=== PATIENT | male | born 1940 | race Caucasian/White ===

== ENCOUNTER 2016-07-14 12:32 | Emergency (ER) | payer OTHER, MEDICARE ==
[~2016-07-14] VITALS: Ht 182.9 cm; Wt 100.0 kg
[2016-07-14 12:32] VITALS: RESP 26
[~2016-07-14 12:32] MED LIST changes: +INSULIN LISPRO 1 UNIT/0.01 ML (HUMALOG) DOSE SC ONE; +WATER (STERILE) FOR INJECTION 10 ML ONE; +ceFAZolin 1000 MG (ANCEF) VIAL ONE
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
[2016-07-14] MEDS ORDERED: fentaNYL 100 MCG/2 ML VIAL ONE ×2 (12:38→13:29)
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
--- NOTE | 2016-07-14 12:47 | NUR ---
DR LIRA HERE TO SEE IF PT NEEDS HIS HELP
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
--- NOTE | 2016-07-14 13:18 | NUR ---
AND SON IN TO SEE PT
[2016-07-14] MEDS ORDERED: ceFAZolin 1000 MG (ANCEF) VIAL ONE (13:20)
--- NOTE | 2016-07-14 13:20 | NUR ---
BRUISING NOTED TO RT WRIST, MADE DR AWARE. WRIST SPLINT APPLIED TO RT WRIST.
--- NOTE | 2016-07-14 13:20 | NUR ---
1ST LITER HAS INFUSED, BP 85/42 IN RT FOREARM. NEW LITER OF NS HUNG.
[2016-07-14] MEDS ORDERED: WATER (STERILE) FOR INJECTION 10 ML ONE (13:21)
--- NOTE | 2016-07-14 13:26 | NUR ---
BP CUFF MOVED TO RT UPPER ARM PER BP 97/56
[2016-07-14] MEDS ORDERED: ROCURONIUM 50 MG/5 ML (ZEMURON) VIAL IV ONE (13:27)
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
[2016-07-14 14:02] LABS: BASOPHILS % (AUTO) 1 % (0-2); EOSINOPHILS # (AUTO) 0.1 10^3uL; EOSINOPHILS % (AUTO) 2 % (0-4); LYMPHOCYTES # (AUTO) 2.4 X10^3; MEAN CORPUSCULAR HGB CONC 32.8 g/dL (31.0-37.0); MEAN PLATELET VOLUME 8.9 FL (6.0-9.5); MONOCYTES # (AUTO) 0.8 X10^3; MONOCYTES % (AUTO) 9 % (3-11); NEUTROPHILS # (AUTO) 5.4 X10^3; NEUTROPHILS % (AUTO) 61 % (51-67); PLATELET COUNT 274 10^3uL (150-450); WHITE BLOOD COUNT 8.91 10^3uL (4.0-11.0)
[2016-07-14 14:04] LABS: MEAN CORPUSCULAR VOLUME 104 FL (80-100)
[2016-07-14 14:06] LABS: BILIRUBIN,URINE Negative (Negative); CLARITY,URINE Cloudy; COLOR,URINE Yellow; GLUCOSE, URINE (UA) Negative (Negative); LEUKOCYTE ESTERASE ,URINE 1+ (Negative); PH,URINE 5.5 (5.0 - 8.0); UROBILINOGEN,URINE 0.2 mg/dL (0.2-1.0)
[2016-07-14 14:11] LABS: AMYLASE* 60 U/L (25-115); ANION GAP 20.4 MEQ/L (3-15); BUN/CREATININE RATIO 23 (10-20); CREATINE KINASE 161 U/L (55-170); LIPASE* 216 U/L (23-300)
[2016-07-14 14:36] LABS: URINE CENTRIFUGED VOLUME 12 mL
[2016-07-14 14:37] LABS: RBC,URINE 20-50 /HPF
[2016-07-14 14:45] VITALS: BP 101/61
== END 2016-07-14 13:35 | disposition short-term general hospital (02) ==
LOC: EDUNIT# 12:32 → ED 12:34
DX: S01.81XA Laceration without foreign body of other part of head, initial encounter (principal); S72.142A Displaced intertrochanteric fracture of left femur, initial encounter for closed fracture; S82.51XC Displaced fracture of medial malleolus of right tibia, initial encounter for open fracture type IIIA, IIIB, or IIIC; S50.11XA Contusion of right forearm, initial encounter; V54.5XXA Driver of pick-up truck or van injured in collision with heavy transport vehicle or bus in traffic accident, initial encounter; V57.5XXA Driver of pick-up truck or van injured in collision with fixed or stationary object in traffic accident, initial encounter; Y92.488 Other paved roadways as the place of occurrence of the external cause; R10.84 Generalized abdominal pain
CPT/HCPCS: 27840; 36415; 51702; 71010; 72170; 73600; 80048; 80320; 81003; 81015; 82150; 82550; 83690; 84484; 85025; 85610; 85730; 86850; 86870; 86900; 86901; 87077; 87088; 87186; 99285; G0390; J0690; J3010; J7030; L3908; 99283; 99284

== ENCOUNTER → 2016-07-14 | Outpatient (CLI) | payer OTHER, MEDICARE ==
[~2016-07-14] MED LIST: ASCO10006 PO; ASP81CT PO; ATOR80TA PO; BRIN8DRO OU; CETI10TA9 PO; CIPR750T23 PO; ESCI10TA PO; HALO50CR2 TP; INDA2.5T2 PO; INSU100V2 SQ; LANTUS SOL100 UNIT/1 SQ; LISI5TAB14 PO; LTN005OP2 OU; MULT-954 PO; NF-ESOM40C PO; OMEP10CA2 PO; OMG1KC PO; SITA100T PO; SULF-228 PO; TAMS-8 PO; TML5OP2.5 OU; VIT1TABL90 PO; [UNRECOGNIZED DRUG - OTHER]
== END ==
LOC: EMS 13:00
PROVIDERS: ATTEND Emergency Medicine
DX: S82.302B Unspecified fracture of lower end of left tibia, initial encounter for open fracture type I or II (principal); S72.001A Fracture of unspecified part of neck of right femur, initial encounter for closed fracture; S82.492B Other fracture of shaft of left fibula, initial encounter for open fracture type I or II; S01.81XA Laceration without foreign body of other part of head, initial encounter; V59.88XA Occupant (driver) (passenger) of pick-up truck or van injured in other specified transport accidents, initial encounter; Y92.414 Local residential or business street as the place of occurrence of the external cause; Z89.511 Acquired absence of right leg below knee